=== PATIENT | female | born 1935 | race Caucasian/White ===

== ENCOUNTER → 2017-02-28 | Outpatient (CLI) | payer OTHER ==
--- NOTE | 2017-02-28 12:13 | DIAGNOSTIC IMAGING REPORT ---
PROCEDURE: US BILATERAL CAROTID DOPPLER INDICATION: CAROTID BURIT TECHNIQUE: Color Doppler duplex imaging of the carotid and vertebral vessels. COMPARISON: None. FINDINGS: Mild plaque formation in both bifurcations. Right carotid system: No significant stenosis visualized. The waveforms are normal. Left carotid system: No significant stenosis visualized. The waveforms are normal. Vertebral System: Antegrade vertebral artery flow bilaterally. Right common carotid artery peak systolic velocity 111.9 cm/second. Right internal carotid artery peak systolic velocity 74.3 cm/second. Right external carotid artery peak systolic velocity 82.9 cm/second. Right rabyctxs-br-xiswjw carotid artery ratio 0.7 Right vertebral artery peak systolic velocity 36.3 cm/second. Left common carotid artery peak systolic velocity 96.6 cm/second. Left internal carotid artery peak systolic velocity 79.2 cm/second. Left external carotid artery peak systolic velocity 96.6 cm/second. Left wjgmchhv-nb-ixfnti carotid artery ratio 0.8 Left vertebral artery peak systolic velocity 39.5 cm/second. IMPRESSION: 1. No hemodynamically significant stenosis in either carotid system. 2. Antegrade vertebral artery flow bilaterally. Velocity criteria are extrapolated from diameter data as defined by the Society of Radiologists in Ultrasound Consensus Conference, Radiology 2003; 229; 340-346.
--- NOTE | 2017-02-28 12:13 | DIAGNOSTIC IMAGING REPORT ---
PROCEDURE: US BILATERAL CAROTID DOPPLER INDICATION: CAROTID BURIT TECHNIQUE: Color Doppler duplex imaging of the carotid and vertebral vessels. COMPARISON: None. FINDINGS: Mild plaque formation in both bifurcations. Right carotid system: No significant stenosis visualized. The waveforms are normal. Left carotid system: No significant stenosis visualized. The waveforms are normal. Vertebral System: Antegrade vertebral artery flow bilaterally. Right common carotid artery peak systolic velocity 111.9 cm/second. Right internal carotid artery peak systolic velocity 74.3 cm/second. Right external carotid artery peak systolic velocity 82.9 cm/second. Right yvcjvwun-ln-wqhtng carotid artery ratio 0.7 Right vertebral artery peak systolic velocity 36.3 cm/second. Left common carotid artery peak systolic velocity 96.6 cm/second. Left internal carotid artery peak systolic velocity 79.2 cm/second. Left external carotid artery peak systolic velocity 96.6 cm/second. Left cvpkwpcv-cs-nmzetb carotid artery ratio 0.8 Left vertebral artery peak systolic velocity 39.5 cm/second. IMPRESSION: 1. No hemodynamically significant stenosis in either carotid system. 2. Antegrade vertebral artery flow bilaterally. Velocity criteria are extrapolated from diameter data as defined by the Society of Radiologists in Ultrasound Consensus Conference, Radiology 2003; 229; 340-346.
== END ==
LOC: US SRH 10:14
DX: R09.89 Other specified symptoms and signs involving the circulatory and respiratory systems (principal)

== ENCOUNTER 2017-05-02 13:28 | Outpatient (CLI) | payer OTHER ==
--- NOTE | 2017-05-02 15:06 | DIAGNOSTIC IMAGING REPORT ---
PROCEDURE: US VENOUS - BILATERAL EXT INDICATION: BILATERAL PERIPHERAL EDEMA TECHNIQUE: Color Doppler duplex imaging of the deep and superficial venous system without and with compression. COMPARISON: None. FINDINGS: RIGHT LOWER EXTREMITY: Deep and superficial venous system of the right lower extremity is within normal limits. There is no evidence of deep vein thrombosis or superficial thrombophlebitis. Peroneal veins not well visualized secondary to patient's body habitus. LEFT LOWER EXTREMITY: Deep and superficial venous system of the left lower extremity is within normal limits. There is no evidence of deep vein thrombosis or superficial thrombophlebitis. Peroneal is not well visualized secondary to patient's body habitus. IMPRESSION: 1. Negative venous ultrasound of the bilateral lower extremities.
== END 2017-05-02 23:00 | disposition home or self-care (01) ==
LOC: US SRH 13:28
DX: R60.9 Edema, unspecified (principal)

== ENCOUNTER 2017-05-21 10:39 | Emergency (ER) | payer OTHER ==
--- NOTE | 2017-05-21 14:00 | ED CLINICAL REPORT ---
Clinical Report - Physicians/Mid Levels [facility] [address] [place] [place] [address] 05/21/2017 10:41 Patient: BETO NICOLE Time Seen: 10:53; initial patient contact. Arrived- By ambulance. Historian- patient and EMS personnel. HISTORY OF PRESENT ILLNESS Chief Complaint: WEAKNESS. At its maximum, severity described as mild. When seen in the E.D., severity described as mild. Modifying factors. Not worsened by anything. Not relieved by anything. This started about 2 days ago and is still present. It was gradual in onset and has been constant. The patient has had a headache. Similar symptoms previously: Once. Recent medical care: Not recently seen/assessed. REVIEW OF SYSTEMS No fever, difficulty breathing, chest pain, abdominal pain or vomiting. No diarrhea, chills or difficulty with urination. She has had nausea. All systems otherwise negative, except as recorded above. PAST HISTORY Hypothyroidism. Hyperlipidemia. Diabetes Mellitus Type 2. Essential Hypertension. Sciatica. LBBB. Coronary Artery Disease. Pulmonary Hypertension. Seborrheic Dermatitis. Surgeries: Cardiac Catheterization. Carpal Tunnel Surgery. Cholecystectomy. Spinal Sx x2. Medications: Oxybutynin Chloride Oral 5 mg, daily. Oxybutynin Chloride Oral 5 mg, daily. Oxybutynin Chloride Oral 5 mg, daily. Oxybutynin Chloride Oral 5 mg, daily. Fish Oil Oral (Capsule 1000 mg) 1 capsule, daily. Vitamin D Oral (Capsule 2000 unit) 1 capsule, daily. Fosinopril Sodium Oral (Tablet 40 mg) 1 tablet, day. Tramodol 50mg 4 times a day prn . Bydureon Subcutaneous (Pen-injector 2 mg), weekly . Benadryl Oral 25 mg, daily. Toujeo 60 units day, for glucose > 120. Jardiance Oral (Tablet 25 mg) 1 tablet, day. AmLODIPine Besylate Oral 5 mg, daily. Aspirin Oral (Tablet 81 mg) 1 tablet, daily. Atenolol Oral (Tablet 50 mg) 1 tablet, daily. Fish Oil Oral (Capsule 1000 mg) 1 capsule, daily. Allergies: No Known Drug Allergy. SOCIAL HISTORY Never smoker. No alcohol use or drug use. ADDITIONAL NOTES The nursing notes have been reviewed. PHYSICAL EXAM Vital Signs: 05/21/2017 10:55 BP: 165/70. HR: 67. RR: 16. O2 saturation: 97%. Temp: 98.2 F. Pain level now: 12/16. Have been reviewed. Hypertensive. Heart rate normal. Respiratory rate normal. Temperature normal. Oxygen saturation normal. Appearance: Alert. No acute distress. Eyes: Eyes normal inspection. ENT: Pharynx normal. CVS: Normal heart rate and rhythm. Heart sounds normal. Respiratory: No respiratory distress. Breath sounds normal. Abdomen: No visible injury. Soft and nontender. Bowel sounds normal. No organomegaly. No mass. Back: Normal inspection. No CVA tenderness. Skin: Skin warm and dry. Normal skin color. No rash. Extremities: No lower extremity edema. Neuro: Oriented X 3. LABS, X-RAYS, AND EKG EKG: EKG time: (1113). Normal sinus rhythm. Rate: 64. Normal P waves. First-degree atrioventricular block. Wide QRS. LBBB. Normal axis. Normal ST and T waves. Prolonged QTc (489). EKG unchanged when compared with prior EKG. (). The study has been interpreted contemporaneously by me. The study has been independently viewed by me. The EKG appears to be a good tracing. Interpretation time: 1113. Laboratory Tests: UA-Culture if indicated: (CALVIN: 05/21/2017 11:20) ( MsgRcvd 05/21/2017 12:43) Final results Test Result Flag Units (Reference) URINE COLOR YELLOW URINE APPEARANCE CLEAR URINE GLUCOSE 3+ (NEGATIVE) URINE BILIRUBIN NEGATIVE (NEGATIVE) URINE KETONE 2+ (NEGATIVE) URINE SPECIFIC GRAVITY 1.020 (1.010-1.030) URINE PH 5.0 (5.0-8.0) URINE PROTEIN NEGATIVE (NEGATIVE) URINE UROBILINOGEN 0.2 EU/dL (0.2-1.0) URINE NITRITE POSITIVE (NEGATIVE) URINE BLOOD TRACE-INTACT (NEGATIVE) URINE LEUK ESTERASE NEGATIVE (NEGATIVE) URINE RBC 0-1 rbc/hpf (0-1) URINE WBC 3-5 wbc/hpf (0-1) URINE EPITHELIAL CELLS 0-1 EPI/hpf (0-5) URINE BACTERIA MANY (4+) (NONE SEEN) URINE COMMENT CULTURE INDICATED URINE CULTURES ARE SET-UP BASED ON THE FOLLOWING CRITERIA:POSITIVE NITRITEPOSITIVE LEUKOCYTE ESTERASEGREATER THAN 10 WHITE BLOOD CELLSMODERATE (2+) OR GREATER BACTERIA CBC w Diff: (CALVIN: 05/21/2017 11:20) ( [facility] 05/21/2017 11:50) Final results Test Result Flag Units (Reference) WHITE BLOOD COUNT 4.5 K/uL (4.5-11.5) RED BLOOD COUNT 4.56 M/uL (4.00-5.20) HEMOGLOBIN 14.5 gm/dL (12.0-16.0) HEMATOCRIT 42.8 % (36.0-46.0) MEAN CELL VOLUME 94 fL (80-100) MEAN CORPUSCULAR HGB 32 pg (26-34) MEAN CORPUSCULAR HGB CONC 34 g/dL (31-37) RED CELL DISTRIBUTION WIDTH 12.7 % (11.6-14.8) PLATELET COUNT 170 K/uL (150-400) NEUTROPHIL % 61.3 % (50-75) LYMPH % 30.5 % (25-40) MONO % 6.7 % (3-14) EOSINOPHIL % 1.1 % (0-4) BASOPHIL % 0.4 % (0-2) BNP: (CALVIN: 05/21/2017 11:20) ( [facility] 05/21/2017 12:11) Final results Test Result Flag Units (Reference) B-TYPE NATRIURETIC PEPTIDE 33 pg/ml (5-100) CHEM 13 PANEL: (CALVIN: 05/21/2017 11:20) ( [facility] 05/21/2017 12:06) Final results Test Result Flag Units (Reference) GLUCOSE 95 mg/dL (70-110) BUN 15 mg/dL (7-18) CREATININE 0.8 mg/dL (0.6-1.3) Estimated GFR >60 mL/min Estimated GFR- >60 mL/min Note: Persistent reduction over 3 months in eGFR<60 mL/min/1.73 m2 defines CKD. Patients with eGFR values>=60 mL/min/1.73 m2 may also have CKD if evidence ofpersistent proteinuria. Additional information may be foundat www.[email or web address].org. SODIUM 139 mmol/L (136-145) POTASSIUM 3.6 mmol/L (3.5-5.1) CHLORIDE 101 mmol/L (98-107) CARBON DIOXIDE 29 mmol/L (21-32) CALCIUM 9.2 mg/dL (8.5-10.1) TOTAL PROTEIN 7.1 g/dL (6.4-8.2) ALBUMIN 3.6 g/dL (3.3-5.0) BILIRUBIN, TOTAL 0.7 mg/dL (0.0-1.0) ALKALINE PHOSPHATASE 62 U/L (46-116) AST (SGOT) 23 U/L (15-37) ALT (SGPT) 16 U/L (12-78) MAGNESIUM 1.7 L mg/dL (1.8-2.4) CPK 92 U/L (24-260) TROPONIN I <0.05 ng/mL (0.00-1.5) TROPONIN REFERENCE RANGE:<0.1 NEGATIVE0.1-1.5 INDETERMINANT>1.5 POSITIVE . PROGRESS AND PROCEDURES Disposition: Discharged home in good and improved condition. Condition: good. CLINICAL IMPRESSION Acute urinary tract infection with cystitis. INSTRUCTIONS Your Current Medications: CONTINUE TAKING THE FOLLOWING MEDICATIONS: AmLODIPine Besylate Oral : 5 mg daily. Aspirin Oral : Tablet 81 mg, 1 tablet daily. Atenolol Oral : Tablet 50 mg, 1 tablet daily. Benadryl Oral : 25 mg daily. Bydureon Subcutaneous : Pen-injector 2 mg, weekly. Fish Oil Oral : Capsule 1000 mg, 1 capsule daily. Fish Oil Oral : Capsule 1000 mg, 1 capsule daily. Fosinopril Sodium Oral : Tablet 40 mg, 1 tablet day. Jardiance Oral : Tablet 25 mg, 1 tablet day. Oxybutynin Chloride Oral : 5 mg daily. Oxybutynin Chloride Oral : 5 mg daily. Oxybutynin Chloride Oral : 5 mg daily. Oxybutynin Chloride Oral : 5 mg daily. Toujeo 60 units day, for glucose > 120*. Tramodol 50mg 4 times a day prn *. Vitamin D Oral : Capsule 2000 unit, 1 capsule daily. Prescription Medications: Zofran (orally disintegrating tablets) 4 mg: take 1 orally every 6 hours as needed for nausea and vomiting. Dispense ten (10). No refill. Substitution is permissible. Augmentin 875 mg: take 1 tablet orally every 12 hours for 3 days. No refill. Substitution is permissible. Follow-up: Follow up with your doctor in about three days. Call for an appointment. Blood pressure screening was not performed during this visit because the patient has an active diagnosis of hypertension. (Electronically signed by Robert Haines Dr. 05/21/2017 15:52)
--- NOTE | 2017-05-21 14:01 | ED ORDER SUMMARY ---
..... Patient: BETO NICOLE OrderSheet [facility] VisitID: [id number] [place] [address] 82y, F Registration Date/Time: 05/21/2017 ORDER SHEET Weight: 100.2 kg (measured) Allergies: No Known Drug Allergy GENERAL ORDERS: Cardiac Panel Stat (11:05/21/2017 Ashia Bhagat) (Ack 11:05 OSnell) (11:22 SRoberts R.N.) UA-Culture if indicated Urgent (11:05/21/2017 Ashia Bhagat) (Ack 11:05 OSnell) (12:33 SRoberts R.N.) BNP Urgent (11:05/21/2017 Ashia Bhagat) (Ack 11:05 OSnell) (11:22 SRoberts R.N.) EKG - ER Stat (11:05/21/2017 Ashia Bhagat) (Ack 11:05 Ton) (11:22 SRoberts R.N.) MEDICATION ORDERS: - (Magnesium Oxide 400 mg PO x 1 now) (12:08 05/21/2017 Ashia Bhagat) (Ack 12:17 SRoberts R.N.) (12:33 SRoberts R.N.) Augmentin PO 875 mg (NOW) (13:33 05/21/2017 Ashia Bhagat) (Ack 13:37 SRoberts R.N.) (15:22 oberts R.N.) IV FLUIDS: IV NS : initial bolus none -, then 1000 mL/hr for X1 (NOW) (11:01 05/21/2017 Ashia Bhagat) (11:21 SRteena R.N.) Zofran IV 4 mg (NOW) (11:05/21/2017 Ashia Bhagat) (11:22 SRoberts R.N.) ORDER SHEET NOTES: [Electronically signed by Mckenzie Saenz R.N. (15:23 05/21/2017)] [Electronically signed by Robert Haines Dr. (15:52 05/21/2017)] [Electronically locked/signed by Mckenzie Saenz R.N. (15:23 05/21/2017)]
--- NOTE | 2017-05-21 14:01 | ED ORDER SUMMARY ---
..... Patient: BETO NICOLE OrderSheet [facility] VisitID: [id number] [place] [address] 82y, F Registration Date/Time: 05/21/2017 ORDER SHEET Weight: 100.2 kg (measured) Allergies: No Known Drug Allergy GENERAL ORDERS: Cardiac Panel Stat (11:05/21/2017 Ashia Bhagat) (Ack 11:05 OSnell) (11:22 SRoberts R.N.) UA-Culture if indicated Urgent (11:05/21/2017 Ashia Bhagat) (Ack 11:05 OSnell) (12:33 SRoberts R.N.) BNP Urgent (11:05/21/2017 Ashia Bhagat) (Ack 11:05 OSnell) (11:22 SRoberts R.N.) EKG - ER Stat (11:05/21/2017 Ashia Bhagat) (Ack 11:05 Ton) (11:22 SRoberts R.N.) MEDICATION ORDERS: - (Magnesium Oxide 400 mg PO x 1 now) (12:08 05/21/2017 Ashia Bhagat) (Ack 12:17 SRoberts R.N.) (12:33 SRoberts R.N.) Augmentin PO 875 mg (NOW) (13:33 05/21/2017 Ashia Bhagat) (Ack 13:37 SRoberts R.N.) (15:22 oberts R.N.) IV FLUIDS: IV NS : initial bolus none -, then 1000 mL/hr for X1 (NOW) (11:01 05/21/2017 Ashai Bhagat) (11:21 SRteena R.N.) Zofran IV 4 mg (NOW) (11:05/21/2017 Ashia Bhagat) (11:22 SRoberts R.N.) ORDER SHEET NOTES: [Electronically signed by Mckenzie Saenz R.N. (15:23 05/21/2017)] [Electronically signed by Robert Haines Dr. (15:52 05/21/2017)] [Electronically locked/signed by Mckenzie Saenz R.N. (15:23 05/21/2017)]
--- NOTE | 2017-05-21 14:01 | ED NURSING NOTES ---
Clinical Report - Nurses [facility] [address] [place] [address] 05/21/2017 10:41 [id number] Triage time 10:55. Acuity: LEVEL 3. Chief Complaint: WEAKNESS (Started some new meds on , took 2 days of new meds and started to feel bad. Stopped taking the meds, thought they may be causing her not to feel well. New meds, oxybutrin, tramadol, jardiance and toijeo.). Alert. No acute distress. SEPSIS SCREEN: Sepsis Screen: negative. Negative (no infection suspected/documented). JOSE COMA SCORE: [place] Coma Scale: 15- eyes open spontaneously (4); best verbal response- oriented x 4 (5); best motor response- obeys commands (6). --11:20 Mckenzie Saenz R.N. 10:55 05/21/17. BP: 165/70. HR: 67. RR: 16. O2 saturation: 97% on room air. Temp: 98.2 F. Pain level now: 12/16. --11:20 Mckenzie Saenz R.N. Weight: 100.2 kg measured. Height/Length: 63 inches Per Patient. BMI: 39.1. --11:17 Mckenzie Saenz R.N. Medications AmLODIPine Besylate Oral 5 mg, daily. Aspirin Oral (Tablet 81 mg) 1 tablet, daily. Atenolol Oral (Tablet 50 mg) 1 tablet, daily. Fish Oil Oral (Capsule 1000 mg) 1 capsule, daily. --11:07 Mckenzie Saenz R.N. Jardiance Oral (Tablet 25 mg) 1 tablet, day. --11:08 Mckenzie Saenz R.N. Toujeo 60 units day, for glucose > 120. --11:09 Mckenzie Saenz R.N. Benadryl Oral 25 mg, daily. --11:09 Mckenzie Saenz R.N. Bydureon Subcutaneous (Pen-injector 2 mg), weekly . --11:11 Mckenzie Saenz R.N. Tramodol 50mg 4 times a day prn . --11:11 Mckenzie Saenz R.N. Fosinopril Sodium Oral (Tablet 40 mg) 1 tablet, day. --11:12 Mckenzie Saenz R.N. Vitamin D Oral (Capsule 2000 unit) 1 capsule, daily. --11:12 Mckenzie Saenz R.N. Fish Oil Oral (Capsule 1000 mg) 1 capsule, daily. --11:12 Mckenzie Saenz R.N. Oxybutynin Chloride Oral 5 mg, daily. Oxybutynin Chloride Oral 5 mg, daily. Oxybutynin Chloride Oral 5 mg, daily. Oxybutynin Chloride Oral 5 mg, daily. --11:14 Mckenzie Saenz R.N. Medication/allergy information source: the patient and patient's imported external medical record. --11:20 Mckenzie Saenz R.N. Allergies No Known Drug Allergy. --11:07 Mckenzie Saenz R.N. History Arrived by EMS. Historian: patient. Primary physician (tip). Onset. (After when started the meds.). She has had weakness. 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 PAST MEDICAL HX: Immunizations: up-to-date. SOCIAL HX: Never smoker. No alcohol use or drug use. LEARNING NEEDS ASSESSMENT: The learning needs assessment revealed no barriers. FALL RISK ASSESSMENT: Fall risk assessment completed. Risk factors identified include patient age greater than 65 years and impairment of mobility. Fall interventions initiated. Patient placed on stretcher. Side rails up x2. Brakes on Bed in low position. Patient visible from nurses' station. Call light in reach of patient. Instructed not to get up without assistance. FUNCTIONAL ASSESSMENT: Functional assessment performed: independent with the activities of daily living; uses wheelchair and walker; wears glasses. SKIN INTEGRITY ASSESSMENT: Skin integrity risk assessment completed. No skin integrity risk identified. --11:20 Mckenzie Saenz R.N. PROBLEMS: Vomiting. Hypothyroidism. Back Pain. Hyperlipidemia. Diabetes Mellitus Type 2. L Shoulder Pain. Sciatica. LBBB. Coronary Artery Disease. Pulmonary Hypertension. --11:15 Saenz, Mckenzie, R.N. ADDITIONAL SURGERIES: Cardiac Catheterization. Carpal Tunnel Surgery. Cholecystectomy. Spinal Sx x2. --11:15 Mckenzie Saenz R.N. Interventions ID band on patient. To room. --11:20 Mckenzie Saenz R.N. NURSING PROGRESS NOTES EKG time: (1113). EKG was ordered, performed by a tech and shown to the ED physician. --11:31 Yumiko [place] 8 fr in/out catheterization. During procedure hand hygiene observed and sterile equipment and aseptic technique used. Return of yellow-colored clear urine. She tolerated procedure well. Patient ID band checked for patient name and birthdate: patient confirmed. Catheterized urine collected; sample sent to lab for urinalysis. Specimen labeled in the presence of the patient. --11:36 Ali 11:05/21/2017 Two (2) unsuccessful IV access attempts including the right forearm and wrist. Applied bandage. --11:48 Ali 11:05/21/2017 Site #1 started via IV in the right forearm with an 20g angiocath, with aseptic technique and good blood return; one attempt. Blood drawn: rainbow set. Labeled in the presence of the patient and sent to the lab. Saline lock flushed. --11:21 Mckenzie Saenz R.N. 11:05/21/2017 Started bag #1 1000 mL IV Fluids IV NS (Saline); at 1000 mL/hr over 1 hour(s) via site #1 via IV pump. Allergies verified and confirmed 5 rights. IV patency established. IV site checked: no pain, redness, or swelling. IV flushed thoroughly pre- and post-medication administration. --11:21 Mckenzie Saenz R.N. 11:05/21/2017 Zofran (Ondansetron HCl) IVP 4 mg given over 1 minute(s) via site #1. Allergies verified and confirmed 5 rights. IV patency established. IV site checked: no pain, redness, or swelling. IV flushed thoroughly pre- and post-medication administration. IVP given by RN. --11:22 Mckenzie Saenz R.N. 12:05/21/17. Warming measures: blanket applied. --12:15 [address] R.N. 12:05/21/17. Reassessment after medication administered. She is calm and resting quietly and has had no adverse reaction. Overall patient status is improved- she states feels better. RESPIRATORY: No respiratory distress. SKIN: Skin is warm and dry. Skin color within normal limits. --12:16 [address] R.N. 12:33 05/21/2017 magnesium oxide * PO 400mg --12:33 Mckenzie Saenz R.N. 12:33 05/21/2017 IV Fluids IV NS Discontinued: bag #1 infused. Total amount infused: 1000 mL. IV patency established. IV site checked: no pain, redness, or swelling. IV flushed thoroughly. --12:33 Mckenzie Saenz R.N. 13:05/21/17. BP: 150/84. HR: 79. RR: 16. O2 saturation: 97% on room air. 12:12 05/21/17. BP: 145/78. HR: 87. RR: 20. O2 saturation: 98% on room air. Pain level now: 0/10. --13:23 Mckenzie Saenz R.N. <<STRICKEN ENTRY-- 13:23 05/21/17. BP: 150/84. HR: 79. RR: 16. O2 saturation: 97% on room air. 12:12 05/21/17. BP: 145/78. HR: 87. RR: 20. O2 saturation: 98% on room air. Pain level now: 0/10. --13:26 Mckenzie Saenz R.N. --END STRIKE>> Correction --13:26 Mckenzie Saenz R.N. Assisted patient to bedside commode and back to bed; tolerated well (VOIDED 200ML URINE). --13:26 Mckenzie Saenz R.N. 13:40 05/21/2017 Augmentin (Amoxicillin-Pot Clavulanate) PO 875 mg given. Allergies verified and confirmed 5 rights. --15:22 Mckenzie Saenz R.N. 15:00 05/21/2017 Site #1 removed upon discharge. Catheter intact. Bandaid applied. --15:23 Mckenzie Saenz R.N. DISPOSITION / DISCHARGE 15:00. Condition at departure: improved. No learning barriers present. Discharge instructions provided and reviewed with the patient and family. Reviewed medication(s) side effects, precautions, dosing and course information. Prescription(s) given to the patient. Patient verbalized understanding. Written instructions provided in [place]. The patient was discharged home and accompanied by family. She left the Emergency Department in a wheelchair and via private vehicle. Family member driving. Medication list reviewed and validated. --15:22 Mckenzie Saenz R.N. 14:45 05/21/17. BP: 139/79. HR: 88. RR: 20. O2 saturation: 97% on room air. Temp: deferred. 13:23 05/21/17. BP: 150/84. HR: 79. RR: 16. O2 saturation: 97% on room air. 12:12 05/21/17. BP: 145/78. HR: 87. RR: 20. O2 saturation: 98% on room air. Pain level now: 0/10. 10:55 05/21/17. BP: 165/70. HR: 67. RR: 16. O2 saturation: 97% on room air. Temp: 98.2 F. Pain level now: 2/10. --15:22 Mckenzie Saenz R.N. Locked/Released at 05/21/2017 15:23 by Mckenzie Saenz R.N.
--- NOTE | 2017-05-21 15:53 | ED DISCHARGE INSTRUCTIONS ---
Patient: BETO NICOLE General Instructions [facility] VisitID: [id number] [place] [address] 82y, F Registration Date/Time: 05/21/2017 Acute urinary tract infection with cystitis. INSTRUCTIONS Your Current Medications: CONTINUE TAKING THE FOLLOWING MEDICATIONS: AmLODIPine Besylate Oral : 5 mg daily. Aspirin Oral : Tablet 81 mg, 1 tablet daily. Atenolol Oral : Tablet 50 mg, 1 tablet daily. Benadryl Oral : 25 mg daily. Bydureon Subcutaneous : Pen-injector 2 mg, weekly. Fish Oil Oral : Capsule 1000 mg, 1 capsule daily. Fish Oil Oral : Capsule 1000 mg, 1 capsule daily. Fosinopril Sodium Oral : Tablet 40 mg, 1 tablet day. Jardiance Oral : Tablet 25 mg, 1 tablet day. Oxybutynin Chloride Oral : 5 mg daily. Oxybutynin Chloride Oral : 5 mg daily. Oxybutynin Chloride Oral : 5 mg daily. Oxybutynin Chloride Oral : 5 mg daily. Toujeo 60 units day, for glucose > 120*. Tramodol 50mg 4 times a day prn *. Vitamin D Oral : Capsule 2000 unit, 1 capsule daily. Prescription Medications: Zofran (orally disintegrating tablets) 4 mg: take 1 orally every 6 hours as needed for nausea and vomiting. Dispense ten (10). No refill. Substitution is permissible. Augmentin 875 mg: take 1 tablet orally every 12 hours for 3 days. No refill. Substitution is permissible. Follow-up: Follow up with your doctor in about three days. Call for an appointment. Blood pressure screening was not performed during this visit because the patient has an active diagnosis of hypertension. ADDITIONAL INFORMATION Bladder Infection,Female (Adult) A bladder infection ("cystitis" or "UTI") usually causes a constant urge to urinate and a burning when passing urine. Urine may be cloudy, smelly or dark. There may be pain in the lower abdomen. A bladder infection occurs when bacteria from the vaginal area enter the bladder opening (urethra). This can occur from sexual intercourse, wearing tight clothing, dehydration and other factors. Home Care: Drink lots of fluids (at least 6-8 glasses a day, unless you must restrict fluids for other medical reasons). This will force the medicine into your urinary system and flush the bacteria out of your body. Avoid sexual intercourse until your symptoms are gone. Avoid caffeine, alcohol and spicy foods. These can irritate the bladder. A bladder infection is treated with antibiotics. You may also be given Pyridium (generic = phenazopyridine) to reduce the burning sensation. This medicine will cause your urine to become a bright orange color. The orange urine may stain clothing. You may wear a pad or panty-liner to protect clothing. Preventing Future Infections: Always wipe from front to back after a bowel movement. Keep the genital area clean and dry. Drink plenty of fluids each day to avoid dehydration. Both sexual partners should wash before intercourse. Urinate right after intercourse to flush out the bladder. Wear cotton underwear and cotton-lined panty hose; avoid tight-fitting pants. If you are on control pills and are having frequent bladder infections, discuss with your doctor. Follow Up: Return to this facility or see your doctor if ALL symptoms are not gone after three days of treatment. Get Prompt Medical Attention if any of the following occur: Fever of 100.4F (38C) or higher, or as directed by your healthcare provider No improvement by the third day of treatment Increasing back or abdominal pain Repeated vomiting; unable to keep medicine down Weakness, dizziness or fainting Vaginal discharge Pain, redness or swelling in the labia (outer vaginal area) Ondansetron Oral disintegrating tablet What is this medicine? ONDANSETRON (on BEN se maral) is used to treat nausea and vomiting caused by chemotherapy. It is also used to prevent or treat nausea and vomiting after surgery. How should I use this medicine? These tablets are made to dissolve in the mouth. Do not try to push the tablet through the foil backing. With dry hands, peel away the foil backing and gently remove the tablet. Place the tablet in the mouth and allow it to dissolve, then swallow. While you may take these tablets with water, it is not necessary to do so. Talk to your clinical mental health counselor regarding the use of this medicine in children. Special care may be needed. What side effects may I notice from receiving this medicine? Side effects that you should report to your doctor or health skin care specialist as soon as possible: allergic reactions like skin rash, itching or hives, swelling of the face, lips, or tongue breathing problems dizziness fast or irregular heartbeat feeling faint or lightheaded, falls fever and chills swelling of the hands and feet tightness in the chest Side effects that usually do not require medical attention (report to your doctor or health skin care specialist if they continue or are bothersome): constipation or diarrhea headache What may interact with this medicine? Do not take this medicine with any of the following medications: -apomorphine -cisapride -dofetilide -dronedarone -pimozide -thioridazine -ziprasidone This medicine may also interact with the following medications: -carbamazepine -phenytoin -rifampicin -tramadol -other medicines that prolong the QT interval (cause an abnormal heart rhythm) What if I miss a dose? If you miss a dose, take it as soon as you can. If it is almost time for your next dose, take only that dose. Do not take double or extra doses. Where should I keep my medicine? Keep out of the reach of children. Store between 2 and 30 degrees C (36 and 86 degrees F). Throw away any unused medicine after the expiration date. What should I tell my health care provider before I take this medicine? They need to know if you have any of these conditions: heart disease history of irregular heartbeat liver disease low levels of magnesium or potassium in the blood an unusual or allergic reaction to ondansetron, granisetron, other medicines, foods, dyes, or preservatives or trying to get breast-feeding What should I watch for while using this medicine? Check with your doctor or health skin care specialist as soon as you can if you have any sign of an allergic reaction. Amoxicillin Trihydrate, Clavulanate Potassium Oral tablet What is this medicine? AMOXICILLIN; CLAVULANIC ACID (a mox i JIGAR in; HARPREET carvajal ic id) is a penicillin antibiotic. It is used to treat certain kinds of bacterial infections. It will not work for colds, flu, or other viral infections. How should I use this medicine? Take this medicine by mouth with a full glass of water. Follow the directions on the prescription label. Take at the start of a meal. Do not crush or chew. If the tablet has a score line, you may cut it in half at the score line for easier swallowing. Take your medicine at regular intervals. Do not take your medicine more often than directed. Take all of your medicine as directed even if you think you are better. Do not skip doses or stop your medicine early. Talk to your clinical mental health counselor regarding the use of this medicine in children. Special care may be needed. What side effects may I notice from receiving this medicine? Side effects that you should report to your doctor or health skin care specialist as soon as possible: allergic reactions like skin rash, itching or hives, swelling of the face, lips, or tongue breathing problems dark urine fever or chills, sore throat redness, blistering, peeling or loosening of the skin, including inside the mouth seizures trouble passing urine or change in the amount of urine unusual bleeding, bruising unusually weak or tired white patches or sores in the mouth or throat Side effects that usually do not require medical attention (report to your doctor or health skin care specialist if they continue or are bothersome): diarrhea dizziness headache nausea, vomiting stomach upset vaginal or anal irritation What may interact with this medicine? allopurinol anticoagulants control pills methotrexate probenecid What if I miss a dose? If you miss a dose, take it as soon as you can. If it is almost time for your next dose, take only that dose. Do not take double or extra doses. Where should I keep my medicine? Keep out of the reach of children. Store at room temperature below 25 degrees C (77 degrees F). Keep container tightly closed. Throw away any unused medicine after the expiration date. What should I tell my health care provider before I take this medicine? They need to know if you have any of these conditions: bowel disease, like colitis kidney disease liver disease mononucleosis an unusual or allergic reaction to amoxicillin, penicillin, cephalosporin, other antibiotics, clavulanic acid, other medicines, foods, dyes, or preservatives or trying to get breast-feeding What should I watch for while using this medicine? Tell your doctor or health skin care specialist if your symptoms do not improve. Do not treat diarrhea with over the counter products. Contact your doctor if you have diarrhea that lasts more than 2 days or if it is severe and watery. If you have diabetes, you may get a false-positive result for sugar in your urine. Check with your doctor or health skin care specialist. control pills may not work properly while you are taking this medicine. Talk to your doctor about using an extra method of control. You have been given the following additional information: Bladder Infection, Female (Adult) Ondansetron Oral disintegrating tablet Amoxicillin Trihydrate, Clavulanate Potassium Oral tablet (Electronically signed by Robert Haines Dr. 05/21/2017 15:52)
--- NOTE | 2017-05-21 15:53 | ED MAR SUMMARY ---
..... Medication Administration Record [facility] [address] [place] [address] Patient: BETO NICOLE Visit ID: [id number] 82y, F Weight: 100.2 kg Height/Length: 63 in BMI: 39.1 ALLERGIES: No Known Drug Allergy Start 11:05/21/2017 Mckenzie Saenz R.N., Stop 12:05/21/2017 Mckenzie Saenz R.N. Medication Administered: IV NS (SALINE), Dose: IV Fluids over 1 hour(s), Rate: 1000 mL/hr, Dispensed: 1000 mL bag, Site: #1 right forearm. Medication Ordered: IV NS : initial bolus none -, then 1000 mL/hr for X1 (NOW). Given 11:05/21/2017 Mckenzie Saenz R.N. Medication Administered: ZOFRAN [IVP] (ONDANSETRON HCL), Dose: 4 mg IVP over 1 minute(s), Site: #1 right forearm. Medication Ordered: Zofran IV 4 mg (NOW). Given 12:33 05/21/2017 Mckenzie Saenz R.N. Medication Administered: magnesium oxide *, Dose: 400mg * PO. Medication Ordered: - (Magnesium Oxide 400 mg PO x 1 now). Given 13:40 05/21/2017 Mckenzie Saenz R.N. Medication Administered: AUGMENTIN [PO] (AMOXICILLIN-POT CLAVULANATE), Dose: 875 mg PO. Medication Ordered: Augmentin PO 875 mg (NOW).
--- NOTE | 2017-05-21 15:53 | ED MED RECONCILIATION SUMMARY ---
Patient: BETO NICOLE Medication Reconciliation Report [facility] VisitID: [id number] [place] [address] 82y, F Registration Date/Time: 05/21/2017 Weight: 100.2 kg Height/Length: 63 in. BMI: 39.1 ALLERGIES: No Known Drug Allergy The patient's Home Medications are listed below: CONTINUE TAKING THE FOLLOWING MEDICATIONS: AmLODIPine Besylate Oral 5 mg, daily Aspirin Oral (81 mg) 1 tablet, daily Atenolol Oral (50 mg) 1 tablet, daily Benadryl Oral 25 mg, daily Bydureon Subcutaneous (2 mg), weekly Fish Oil Oral (1000 mg) 1 capsule, daily Fish Oil Oral (1000 mg) 1 capsule, daily Fosinopril Sodium Oral (40 mg) 1 tablet, day Jardiance Oral (25 mg) 1 tablet, day Oxybutynin Chloride Oral 5 mg, daily Oxybutynin Chloride Oral 5 mg, daily Oxybutynin Chloride Oral 5 mg, daily Oxybutynin Chloride Oral 5 mg, daily Toujeo 60 units day, for glucose > 120 Tramodol 50mg 4 times a day prn Vitamin D Oral (2000 unit) 1 capsule, daily The source(s) of the original Home Medication information: patient patient's imported external medical record The following Medications were given to the patient in the Emergency Department: IV NS IV Fluids bolus 0, then 1000 mL/hr, administered: 05/21/2017 11:21:00 AM Zofran [IVP] IVP 4 mg, administered: 05/21/2017 11:22:00 AM magnesium oxide PO 400mg, administered: 05/21/2017 12:33:00 PM Augmentin [PO] PO 875 mg, administered: 05/21/2017 1:40:00 PM The following Medications were prescribed to the patient: Zofran (orally disintegrating tablets) 4 mg: take 1 orally every 6 hours as needed for nausea and vomiting. Dispense ten (10). No refill. Substitution is permissible. -- Robert Haines Dr. Augmentin 875 mg: take 1 tablet orally every 12 hours for 3 days. No refill. Substitution is permissible. -- Robert Haines Dr.
--- NOTE | 2017-05-21 15:53 | ED MED RECONCILIATION SUMMARY ---
Patient: BETO NICOLE Medication Reconciliation Report [facility] VisitID: [id number] [place] [address] 82y, F Registration Date/Time: 05/21/2017 Weight: 100.2 kg Height/Length: 63 in. BMI: 39.1 ALLERGIES: No Known Drug Allergy The patient's Home Medications are listed below: CONTINUE TAKING THE FOLLOWING MEDICATIONS: AmLODIPine Besylate Oral 5 mg, daily Aspirin Oral (81 mg) 1 tablet, daily Atenolol Oral (50 mg) 1 tablet, daily Benadryl Oral 25 mg, daily Bydureon Subcutaneous (2 mg), weekly Fish Oil Oral (1000 mg) 1 capsule, daily Fish Oil Oral (1000 mg) 1 capsule, daily Fosinopril Sodium Oral (40 mg) 1 tablet, day Jardiance Oral (25 mg) 1 tablet, day Oxybutynin Chloride Oral 5 mg, daily Oxybutynin Chloride Oral 5 mg, daily Oxybutynin Chloride Oral 5 mg, daily Oxybutynin Chloride Oral 5 mg, daily Toujeo 60 units day, for glucose > 120 Tramodol 50mg 4 times a day prn Vitamin D Oral (2000 unit) 1 capsule, daily The source(s) of the original Home Medication information: patient patient's imported external medical record The following Medications were given to the patient in the Emergency Department: IV NS IV Fluids bolus 0, then 1000 mL/hr, administered: 05/21/2017 11:21:00 AM Zofran [IVP] IVP 4 mg, administered: 05/21/2017 11:22:00 AM magnesium oxide PO 400mg, administered: 05/21/2017 12:33:00 PM Augmentin [PO] PO 875 mg, administered: 05/21/2017 1:40:00 PM The following Medications were prescribed to the patient: Zofran (orally disintegrating tablets) 4 mg: take 1 orally every 6 hours as needed for nausea and vomiting. Dispense ten (10). No refill. Substitution is permissible. -- Robert Haines Dr. Augmentin 875 mg: take 1 tablet orally every 12 hours for 3 days. No refill. Substitution is permissible. -- Robert Haines Dr.
--- NOTE | 2017-05-21 15:53 | ED MAR SUMMARY ---
..... Medication Administration Record [facility] [address] [place] [address] Patient: BETO NICOLE Visit ID: [id number] 82y, F Weight: 100.2 kg Height/Length: 63 in BMI: 39.1 ALLERGIES: No Known Drug Allergy Start 11:05/21/2017 Mckenzie Saenz R.N., Stop 12:05/21/2017 Mckenzie Saenz R.N. Medication Administered: IV NS (SALINE), Dose: IV Fluids over 1 hour(s), Rate: 1000 mL/hr, Dispensed: 1000 mL bag, Site: #1 right forearm. Medication Ordered: IV NS : initial bolus none -, then 1000 mL/hr for X1 (NOW). Given 11:05/21/2017 Mckenzie Saenz R.N. Medication Administered: ZOFRAN [IVP] (ONDANSETRON HCL), Dose: 4 mg IVP over 1 minute(s), Site: #1 right forearm. Medication Ordered: Zofran IV 4 mg (NOW). Given 12:33 05/21/2017 Mckenzie Saenz R.N. Medication Administered: magnesium oxide *, Dose: 400mg * PO. Medication Ordered: - (Magnesium Oxide 400 mg PO x 1 now). Given 13:40 05/21/2017 Mckenzie Saenz R.N. Medication Administered: AUGMENTIN [PO] (AMOXICILLIN-POT CLAVULANATE), Dose: 875 mg PO. Medication Ordered: Augmentin PO 875 mg (NOW).
--- NOTE | 2017-05-21 15:53 | ED DISCHARGE INSTRUCTIONS ---
Patient: BETO NICOLE General Instructions [facility] VisitID: [id number] [place] [address] 82y, F Registration Date/Time: 05/21/2017 Acute urinary tract infection with cystitis. INSTRUCTIONS Your Current Medications: CONTINUE TAKING THE FOLLOWING MEDICATIONS: AmLODIPine Besylate Oral : 5 mg daily. Aspirin Oral : Tablet 81 mg, 1 tablet daily. Atenolol Oral : Tablet 50 mg, 1 tablet daily. Benadryl Oral : 25 mg daily. Bydureon Subcutaneous : Pen-injector 2 mg, weekly. Fish Oil Oral : Capsule 1000 mg, 1 capsule daily. Fish Oil Oral : Capsule 1000 mg, 1 capsule daily. Fosinopril Sodium Oral : Tablet 40 mg, 1 tablet day. Jardiance Oral : Tablet 25 mg, 1 tablet day. Oxybutynin Chloride Oral : 5 mg daily. Oxybutynin Chloride Oral : 5 mg daily. Oxybutynin Chloride Oral : 5 mg daily. Oxybutynin Chloride Oral : 5 mg daily. Toujeo 60 units day, for glucose > 120*. Tramodol 50mg 4 times a day prn *. Vitamin D Oral : Capsule 2000 unit, 1 capsule daily. Prescription Medications: Zofran (orally disintegrating tablets) 4 mg: take 1 orally every 6 hours as needed for nausea and vomiting. Dispense ten (10). No refill. Substitution is permissible. Augmentin 875 mg: take 1 tablet orally every 12 hours for 3 days. No refill. Substitution is permissible. Follow-up: Follow up with your doctor in about three days. Call for an appointment. Blood pressure screening was not performed during this visit because the patient has an active diagnosis of hypertension. ADDITIONAL INFORMATION Bladder Infection,Female (Adult) A bladder infection ("cystitis" or "UTI") usually causes a constant urge to urinate and a burning when passing urine. Urine may be cloudy, smelly or dark. There may be pain in the lower abdomen. A bladder infection occurs when bacteria from the vaginal area enter the bladder opening (urethra). This can occur from sexual intercourse, wearing tight clothing, dehydration and other factors. Home Care: Drink lots of fluids (at least 6-8 glasses a day, unless you must restrict fluids for other medical reasons). This will force the medicine into your urinary system and flush the bacteria out of your body. Avoid sexual intercourse until your symptoms are gone. Avoid caffeine, alcohol and spicy foods. These can irritate the bladder. A bladder infection is treated with antibiotics. You may also be given Pyridium (generic = phenazopyridine) to reduce the burning sensation. This medicine will cause your urine to become a bright orange color. The orange urine may stain clothing. You may wear a pad or panty-liner to protect clothing. Preventing Future Infections: Always wipe from front to back after a bowel movement. Keep the genital area clean and dry. Drink plenty of fluids each day to avoid dehydration. Both sexual partners should wash before intercourse. Urinate right after intercourse to flush out the bladder. Wear cotton underwear and cotton-lined panty hose; avoid tight-fitting pants. If you are on control pills and are having frequent bladder infections, discuss with your doctor. Follow Up: Return to this facility or see your doctor if ALL symptoms are not gone after three days of treatment. Get Prompt Medical Attention if any of the following occur: Fever of 100.4F (38C) or higher, or as directed by your healthcare provider No improvement by the third day of treatment Increasing back or abdominal pain Repeated vomiting; unable to keep medicine down Weakness, dizziness or fainting Vaginal discharge Pain, redness or swelling in the labia (outer vaginal area) Ondansetron Oral disintegrating tablet What is this medicine? ONDANSETRON (on BEN se maral) is used to treat nausea and vomiting caused by chemotherapy. It is also used to prevent or treat nausea and vomiting after surgery. How should I use this medicine? These tablets are made to dissolve in the mouth. Do not try to push the tablet through the foil backing. With dry hands, peel away the foil backing and gently remove the tablet. Place the tablet in the mouth and allow it to dissolve, then swallow. While you may take these tablets with water, it is not necessary to do so. Talk to your senior construction manager regarding the use of this medicine in children. Special care may be needed. What side effects may I notice from receiving this medicine? Side effects that you should report to your doctor or health daycare teacher as soon as possible: allergic reactions like skin rash, itching or hives, swelling of the face, lips, or tongue breathing problems dizziness fast or irregular heartbeat feeling faint or lightheaded, falls fever and chills swelling of the hands and feet tightness in the chest Side effects that usually do not require medical attention (report to your doctor or health daycare teacher if they continue or are bothersome): constipation or diarrhea headache What may interact with this medicine? Do not take this medicine with any of the following medications: -apomorphine -cisapride -dofetilide -dronedarone -pimozide -thioridazine -ziprasidone This medicine may also interact with the following medications: -carbamazepine -phenytoin -rifampicin -tramadol -other medicines that prolong the QT interval (cause an abnormal heart rhythm) What if I miss a dose? If you miss a dose, take it as soon as you can. If it is almost time for your next dose, take only that dose. Do not take double or extra doses. Where should I keep my medicine? Keep out of the reach of children. Store between 2 and 30 degrees C (36 and 86 degrees F). Throw away any unused medicine after the expiration date. What should I tell my health care provider before I take this medicine? They need to know if you have any of these conditions: heart disease history of irregular heartbeat liver disease low levels of magnesium or potassium in the blood an unusual or allergic reaction to ondansetron, granisetron, other medicines, foods, dyes, or preservatives or trying to get breast-feeding What should I watch for while using this medicine? Check with your doctor or health daycare teacher as soon as you can if you have any sign of an allergic reaction. Amoxicillin Trihydrate, Clavulanate Potassium Oral tablet What is this medicine? AMOXICILLIN; CLAVULANIC ACID (a mox i JIGAR in; HARPREET carvajal ic id) is a penicillin antibiotic. It is used to treat certain kinds of bacterial infections. It will not work for colds, flu, or other viral infections. How should I use this medicine? Take this medicine by mouth with a full glass of water. Follow the directions on the prescription label. Take at the start of a meal. Do not crush or chew. If the tablet has a score line, you may cut it in half at the score line for easier swallowing. Take your medicine at regular intervals. Do not take your medicine more often than directed. Take all of your medicine as directed even if you think you are better. Do not skip doses or stop your medicine early. Talk to your senior construction manager regarding the use of this medicine in children. Special care may be needed. What side effects may I notice from receiving this medicine? Side effects that you should report to your doctor or health daycare teacher as soon as possible: allergic reactions like skin rash, itching or hives, swelling of the face, lips, or tongue breathing problems dark urine fever or chills, sore throat redness, blistering, peeling or loosening of the skin, including inside the mouth seizures trouble passing urine or change in the amount of urine unusual bleeding, bruising unusually weak or tired white patches or sores in the mouth or throat Side effects that usually do not require medical attention (report to your doctor or health daycare teacher if they continue or are bothersome): diarrhea dizziness headache nausea, vomiting stomach upset vaginal or anal irritation What may interact with this medicine? allopurinol anticoagulants control pills methotrexate probenecid What if I miss a dose? If you miss a dose, take it as soon as you can. If it is almost time for your next dose, take only that dose. Do not take double or extra doses. Where should I keep my medicine? Keep out of the reach of children. Store at room temperature below 25 degrees C (77 degrees F). Keep container tightly closed. Throw away any unused medicine after the expiration date. What should I tell my health care provider before I take this medicine? They need to know if you have any of these conditions: bowel disease, like colitis kidney disease liver disease mononucleosis an unusual or allergic reaction to amoxicillin, penicillin, cephalosporin, other antibiotics, clavulanic acid, other medicines, foods, dyes, or preservatives or trying to get breast-feeding What should I watch for while using this medicine? Tell your doctor or health daycare teacher if your symptoms do not improve. Do not treat diarrhea with over the counter products. Contact your doctor if you have diarrhea that lasts more than 2 days or if it is severe and watery. If you have diabetes, you may get a false-positive result for sugar in your urine. Check with your doctor or health daycare teacher. control pills may not work properly while you are taking this medicine. Talk to your doctor about using an extra method of control. You have been given the following additional information: Bladder Infection, Female (Adult) Ondansetron Oral disintegrating tablet Amoxicillin Trihydrate, Clavulanate Potassium Oral tablet (Electronically signed by Robert Haines Dr. 05/21/2017 15:52)
== END 2017-05-21 15:00 | disposition home or self-care (01) ==
LOC: ED SRH 10:39
DX: N30.00 Acute cystitis without hematuria (principal); E11.9 Type 2 diabetes mellitus without complications; E78.5 Hyperlipidemia, unspecified; E03.9 Hypothyroidism, unspecified; I27.0 Primary pulmonary hypertension; I25.10 Atherosclerotic heart disease of native coronary artery without angina pectoris; Z79.82 Long term (current) use of aspirin; Z79.891 Long term (current) use of opiate analgesic; Z79.4 Long term (current) use of insulin; Z79.899 Other long term (current) drug therapy
CPT/HCPCS: 81460; 90004; 90100; 90148; 90469; 90616; 91320; 92610; 92720; 95059